=== PATIENT | female | born 1990 | race Caucasian/White ===

== ENCOUNTER 2018-08-04 17:34 | Inpatient (IN) | payer OTHER ==
[~2018-08-04] VITALS: Ht 160 cm; Wt 70.3 kg
[2018-08-04] MEDS: NS 1,000 ML IV SCH (01:00)
[2018-08-04] MEDS ORDERED: ZYRTTAB8 PO (17:45)
[2018-08-04] MEDS ORDERED: FLON1SPR NARES (17:45)
[2018-08-04] MEDS ORDERED: ROBA500T PO (17:45)
[2018-08-04] MEDS ORDERED: OXYC15TA76 PO (17:45)
[2018-08-04] MEDS ORDERED: CYCL5TAB PO (17:45)
[2018-08-04] MEDS ORDERED: CLEO150C PO (17:45)
[2018-08-04] MEDS ORDERED: CYMB1CAP5 PO (17:45)
[2018-08-04] MEDS ORDERED: ACET160S3 PO (17:45)
[2018-08-04 19:33] LABS: BASO % 0.3 % (0.0-1.0); EOS % 1.4 % (0.0-3.0); HEMATOCRIT 36.2 % (36.0-47.0); LYMPH # 3.1 10^3/uL (1.5-6.5); MEAN CORPUSCULAR HEMOGLOBIN 31.3 pg (27.0-33.0); MEAN CORPUSCULAR HGB CONC 33.1 g/dl (32.0-36.5); MEAN CORPUSCULAR VOLUME 94.5 fl (80.0-96.0); MONO # 0.7 10^3/uL (0.0-0.8); MONO % 4.7 % (0.0-5.0); NEUTROPHILS # 11.2 10^3/uL (1.8-7.7); PLATELET COUNT, AUTOMATED 524 10^3/uL (150-450); RED BLOOD COUNT 3.83 10^6/uL (4.00-5.40); WHITE BLOOD COUNT 15.4 10^3/uL (4.0-10.0)
[2018-08-04 19:34] LABS: BASO # 0.1 10^3/uL (0.0-0.2); EOS # 0.2 10^3/uL (0.0-0.50)
[2018-08-04 19:55] LABS: INR 0.87; PROTHROMBIN TIME 11.9 SECONDS (12.1-14.4)
[2018-08-04] MEDS ORDERED: PROPOFOL 200 MG/20 ML VIAL As Ordered ONE (19:55)
[2018-08-04] MEDS ORDERED: LIDOCAINE 2% INJ 100 MG/5 ML SDV (FOR ANES.) As Ordered ONE (19:55)
[2018-08-04 19:56] LABS: PARTIAL THROMBOPLASTIN TIME 28.5 SECONDS (25.4-37.6)
[2018-08-04] MEDS ORDERED: fentaNYL 100 MCG/2 ML INJECTION (J3010) As Ordered ONE (19:56)
[2018-08-04] MEDS ORDERED: MIDAZOLAM INJ 2 MG/2 ML VIAL (J2250) As Ordered ONE ×2 (19:56→22:17)
[2018-08-04 20:00] LABS: HCG, SERUM QUALITATIVE NEGATIVE (NEGATIVE)
[2018-08-04 20:05] LABS: BLOOD UREA NITROGEN 12 MG/DL (7-18); CALCIUM LEVEL 8.7 MG/DL (8.5-10.1); CARBON DIOXIDE LEVEL 28 MEQ/L (21-32); CHLORIDE LEVEL 103 MEQ/L (98-107); CREATININE FOR GFR 0.66 MG/DL (0.55-1.30); GLOMERULAR FILTRATION RATE > 60.0 (>60); GLUCOSE, FASTING 94 MG/DL (70-100); POTASSIUM SERUM 3.9 MEQ/L (3.5-5.1); SODIUM LEVEL 138 MEQ/L (136-145)
[2018-08-04] MEDS ORDERED: OXYC-517 PO (20:08)
[2018-08-04] MEDS ORDERED: DULO-34 PO (20:08)
[2018-08-04] MEDS ORDERED: ACET-683 PO (20:08)
[2018-08-04] MEDS ORDERED: ROCURONIUM BROMIDE 50 MG/5 ML VIAL As Ordered ONE (20:14)
[2018-08-04] MEDS ORDERED: SUCCINYLCHOLINE 100 MG/5 ML SYRINGE (J0330) As Ordered ONE (20:14)
[2018-08-04] MEDS ORDERED: dexameTHASONE 4 MG/ML 1ML VIAL (J1100) As Ordered ONE (20:15)
[2018-08-04] MEDS ORDERED: ONDANSETRON 4MG/2ML VIAL (J2405) As Ordered ONE ×3 (20:15→21:12)
[2018-08-04] MEDS ORDERED: MORPHINE 4 MG/ML 1ML VIAL/SYRINGE (J2270) IV ONE (20:15)
[2018-08-04] MEDS ORDERED: ONDANSETRON 4MG/2ML VIAL (J2405) IV ONE (20:30)
[2018-08-04] MEDS ORDERED: SCOPOLAMINE 1MG TRANSDERMAL PATCH As Ordered ONE (20:30)
--- NOTE | 2018-08-04 20:35 | CR.PDOC ---
Plastic Surgery Consultation Date of Consultation 08/04/18 History and Physical CONSULT REPORT FOR: ER REASON FOR CONSULTATION: Right breast hematoma HISTORY OF PRESENT ILLNESS: 28 y/o female s/p bilateral mastectomy with immediate pre pectoral reconstruction with tissue expanders 250cc. Expanded to about 180cc, done on 07/25/18. Patient was operated in [facility]. She flew over to see her son. She has [address]. Started to experience increasing pain in the right breast today at 4 pm, with increased drainage from TU, bright red and breast expanded twice the size of the other breast. No dizziness, SOB, CP. PAST MEDICAL HISTORY: 1. Right breast CA. PAST SURGICAL HISTORY: INCLUDES: 1. appendectomy, bilateral mastectomy with reconstruction, tonsillectomy, C secion. . PREVIOUS ANESTHESIA REACTIONS: allergy to Lidocaine?, nausea. ALLERGIES: Please see below. FAMILY HISTORY: non contributory. HOME MEDICATIONS: Please see below. REVIEW OF SYSTEMS: GENERAL: Denies chills, reports weight gain, reports feeling febrile yesterday. HEENT: Denies blurred vision and double vision. Denies ear symptoms. Denies hoarseness. NECK: Denies any neck pain]. CARDIOVASCULAR: Denies chest pain and palpitations. MUSCULOSKELETAL: Denies arthralgias, back pain and thrombophlebitis. SKIN: Denies rash. Hematoma right breast. NEUROLOGIC: Denies headache, stroke and transient ischemic attack. PSYCHIATRIC: Denies anxiety and depression. ENDOCRINE: Denies thyroid disease. HEMATOLOGY/ONCOLOGY: Denies bleeding or clotting disorder. HEART: Denies any chest pains, palpitations, paroxysmal dyspnea, orthopnea. PULMONARY: Denies chronic cough, dyspnea and wheezing. GASTROINTESTINAL: Denies rectal bleeding, family history of colon cancer, constipation, diarrhea, dysphagia, heartburn and jaundice. GENITOURINARY: Denies dysuria, frequency, hematuria and nocturia. ENDOCRINE: Denies polydipsia, polyphagia, polyuria, heat or cold intolerance. INFECTIOUS: Denies any recent upper respiratory tract infection, UTI, need for use of antibiotics. NUTRITION: Reports good appetite. PHYSICAL EXAMINATION: VITALS SIGNS: Please see below. GENERAL APPEARANCE:Patient seen, laying in bed, awake, alert, and oriented. Comfortable, in no acute distress. SKIN: Warm and moist. Right breast twice the size of the Left. Superior pole ecchymosis. Flaps viable, NAC viable. Inflammatory incisions. TU bilateral in place. HEENT: Normocephalic, atraumatic. [place] palpebral conjunctiva, anicteric sclerae. Lips and mucosa appear moist. NECK: Supple, no thyromegaly. No obvious jugular venous distention. LUNGS: Clear to auscultation bilaterally. No wheezing appreciated. HEART: No chest wall abnormalities. Regular rate and rhythm with no murmurs appr eciated. ABDOMEN: Abdomen is , soft, NT/ND. LABORATORY DATA: Please see below. IMAGING STUDIES: . IMPRESSION AND PLAN: Right breast hematoma. Plan for evacuation right breast hematoma today. Risks, benefits and alternatives discussed with patient at length. Continue with Clndamycin Primary surgeon contacted, surgical approach and original procedure verified. Admit to the hospital. Hospitalist service contacted. Vital Signs Vital Signs Date Time Temp Pulse Resp B/P (MAP) Pulse Ox O2 Delivery O2 Flow Rate FiO2 08/04/18 19:20 08/04/18 17:35 97.3 126 24 98 Room Air Laboratory Data Labs 24H Laboratory Tests 2 08/04/18 19:08: Immature Granulocyte % (Auto) 0.6, White Blood Count 15.4H, Red Blood Count 3.83L, Hemoglobin 12.0, Hematocrit 36.2, Mean Corpuscular Volume 94.5, Mean Corpuscular Hemoglobin 31.3, Mean Corpuscular Hemoglobin Concent 33.1, Red Cell Distribution Width 13.3, Platelet Count 524H, Neutrophils (%) (Auto) 73.0H, Lymphocytes (%) (Auto) 20.0L, Monocytes (%) (Auto) 4.7, Eosinophils (%) (Auto) 1.4, Basophils (%) (Auto) 0.3, Neutrophils # (Auto) 11.2H, Lymphocytes # (Auto) 3.1, Monocytes # (Auto) 0.7, Eosinophils # (Auto) 0.2, Basophils # (Auto) 0.1, Nucleated Red Blood Cells % (auto) 0.0, Prothrombin Time 11.9L, Prothromb Time International Ratio 0.87, Activated Partial Thromboplast Time 28.5, Anion Gap 7L, Glomerular Filtration Rate > 60.0, Blood Urea Nitrogen 12, Creatinine 0.66, Sodium Level 138, Potassium Level 3.9, Chloride Level 103, Carbon Dioxide Level 28, Calcium Level 8.7, Human Chorionic Gonadotropin, Qual NEGATIVE CBC/BMP Laboratory Tests 08/04/18 19:08 Red Blood Count 3.83 L, Mean Corpuscular Volume 94.5, Mean Corpuscular Hemoglobin 31.3, Mean Corpuscular Hemoglobin Concent 33.1, Red Cell Distribution Width 13.3, Neutrophils (%) (Auto) 73.0 H, Lymphocytes (%) (Auto) 20.0 L, Monocytes (%) (Auto) 4.7, Eosinophils (%) (Auto) 1.4, Basophils (%) (Auto) 0.3, Neutrophils # (Auto) 11.2 H, Lymphocytes # (Auto) 3.1, Monocytes # (Auto) 0.7, Eosinophils # (Auto) 0.2, Basophils # (Auto) 0.1, Calcium Level 8.7 Home Medications Scheduled Clindamycin Hcl (Cleocin HCl) 150 Mg Capsule, 150 MG PO BID, (Reported) Duloxetine HCl (Duloxetine HCl) 40 Mg Capsule.dr, 40 MG PO QHS, (Reported) Fluticasone Propionate (Flonase Allergy Relief) 9.9 Ml [place].susp, 2 SPRAY NARES DAILY, (Reported) Methocarbamol (Robaxin) 500 Mg Tablet, 1,000 MG PO BID, (Reported) Scheduled PRN Acetaminophen (Acetaminophen) 500 Mg Tablet, 1,000 MG PO Q6H PRN for PAIN, (Reported) Cyclobenzaprine HCl (Cyclobenzaprine HCl) 5 Mg Tablet, 5 MG PO TID PRN for BACK PAIN, (Reported) Oxycodone HCl (Oxycodone HCl) 5 Mg Tablet, 5 MG PO QID PRN for PAIN, (Reported) Miscellaneous Medications Cetirizine HCl/Pseudoephedrine (Zyrtec-D Tablet) 1 Each Tab.er.12h, 1 TAB PO, (Reported) Allergies Coded Allergies: Sulfa (Sulfonamide Antibiotics) (Verified Allergy, Severe, anaphylactic, 08/04/18) amoxicillin (Verified Allergy, Intermediate, rash, 08/04/18) clavulanic acid (Verified Allergy, Intermediate, rash, 08/04/18) LESLIE PENA DO Aug 04, 2018 20:35
[2018-08-04] MEDS ORDERED: CLINDAMYCIN 600 MG/50 ML PREMIX BAG As Ordered ONE (20:49)
[2018-08-04] MEDS ORDERED: BACITRACIN PWD 50,000 UNITS VIAL As Ordered ONE (20:49)
--- NOTE | 2018-08-04 20:49 | HPEPDOC ---
[facility] Medical History & Physical Date of Admission Aug 05, 2018 Date of Service: Aug 05, 2018 History and Physical CHIEF COMPLAINT: R. breast pain HISTORY OF PRESENT ILLNESS: Patient is a 28-year-old female with past medical history of breast cancer status post bilateral mastectomy and reconstruction surgery on 07/25/18 in [facility]. presented to [facility] with complaints of acute R. breast swelling and pain. She reportedly has been doing well post op since returning from [facility] until about 4PM today when her R. became acutely swollen with significant pain. Also noted to have bloody drainage from her surgical drain from the procedure which is new for her. She underwent hematoma evacuation with plastic surgery in the evening and reports feeling better post op. Currently still reports pain, better controlled now. Otherwise has no other complaints. PAST MEDICAL HISTORY: Refer to [facility] PAST SURGICAL HISTORY: Bilateral mastectomy and reconstruction Appendectomy Tonsillectomy SOCIAL HISTORY: Denies tobacco, alcohol or illicit drug use. FAMILY HISTORY: Mom had ovarian cancer ALLERGIES: Please see below. REVIEW OF SYSTEMS: 10 point review of system negative except as stated in [facility] HOME MEDICATIONS: Please see below. PHYSICAL EXAMINATION: General: weak. mild to moderate distress from pain. Eyes: Normal sclera, EOMI, PIN[place] HENT: Atraumatic, neck supple, moist mucous membranes MSK: Tenderness over R. breast on palpation. No erythema. No significant swelling noted, drain in place with serosanguineous drainage. Cardiovascular: Normal rate, normal rhythm. No murmurs appreciated. Pulmonary: Clear to auscultation b/l, no wheezing GI: Soft, nontender, nondistended Skin: Warm and dry Neuro: CN grossly intact. No focal deficits. Strengths equal b/l. Psych: oriented x 3 LABORATORY DATA: See below. IMAGING: Chest CT- IMPRESSION: Status post bilateral breast expanders mastectomies. Soft tissue density demonstrated anterior to the soft tissue in home sales consultant on the right measures 2.1 x 7.8 x 3.2 cm may represent hematoma. MICROBIOLOGY: Please see below. ASSESSMENT AND PLAN: 1. R. breast hematoma - s/p hematoma evacuation 08/04/18 by plastic surgery. - Doing well post op with pain improving. - PCU pump in place with Percocet. - Pain control. - Monitor overnight. f/u with plastic surgery in AM. - Drain in place. - c/w Clindamycin 2. Breast ca s/p b/l mastectomy - f/u as outpatient post discharge. DVT ppx: SCD Code status: Full code Vital Signs Vital Signs Date Time Temp Pulse Resp B/P (MAP) Pulse Ox O2 Delivery O2 Flow Rate FiO2 08/04/18 20:25 18 08/04/18 19:20 08/04/18 17:35 97.3 126 98 Room Air Laboratory Data Labs 24H Laboratory Tests 2 08/04/18 19:08: Immature Granulocyte % (Auto) 0.6, White Blood Count 15.4H, Red Blood Count 3.83L, Hemoglobin 12.0, Hematocrit 36.2, Mean Corpuscular Volume 94.5, Mean Corpuscular Hemoglobin 31.3, Mean Corpuscular Hemoglobin Concent 33.1, Red Cell Distribution Width 13.3, Platelet Count 524H, Neutrophils (%) (Auto) 73.0H, Lymphocytes (%) (Auto) 20.0L, Monocytes (%) (Auto) 4.7, Eosinophils (%) (Auto) 1.4, Basophils (%) (Auto) 0.3, Neutrophils # (Auto) 11.2H, Lymphocytes # (Auto) 3.1, Monocytes # (Auto) 0.7, Eosinophils # (Auto) 0.2, Basophils # (Auto) 0.1, Nucleated Red Blood Cells % (auto) 0.0, Prothrombin Time 11.9L, Prothromb Time International Ratio 0.87, Activated Partial Thromboplast Time 28.5, Anion Gap 7L, Glomerular Filtration Rate > 60.0, Blood Urea Nitrogen 12, Creatinine 0.66, Sodium Level 138, Potassium Level 3.9, Chloride Level 103, Carbon Dioxide Level 28, Calcium Level 8.7, Human Chorionic Gonadotropin, Qual NEGATIVE 08/04/18 20:28: CBC/BMP Laboratory Tests 08/04/18 19:08 Red Blood Count 3.83 L, Mean Corpuscular Volume 94.5, Mean Corpuscular Hemoglobin 31.3, Mean Corpuscular Hemoglobin Concent 33.1, Red Cell Distribution Width 13.3, Neutrophils (%) (Auto) 73.0 H, Lymphocytes (%) (Auto) 20.0 L, Monocytes (%) (Auto) 4.7, Eosinophils (%) (Auto) 1.4, Basophils (%) (Auto) 0.3, Neutrophils # (Auto) 11.2 H, Lymphocytes # (Auto) 3.1, Monocytes # (Auto) 0.7, Eosinophils # (Auto) 0.2, Basophils # (Auto) 0.1, Calcium Level 8.7 Home Medications Scheduled Clindamycin Hcl (Cleocin HCl) 150 Mg Capsule, 150 MG PO BID Duloxetine HCl (Duloxetine HCl) 40 Mg Capsule.dr, 40 MG PO QHS Fluticasone Propionate (Flonase Allergy Relief) 9.9 Ml [place].susp, 2 SPRAY NARES DAILY Methocarbamol (Robaxin) 500 Mg Tablet, 1,000 MG PO BID Scheduled PRN Acetaminophen (Acetaminophen) 500 Mg Tablet, 1,000 MG PO Q6H PRN for PAIN Cyclobenzaprine HCl (Cyclobenzaprine HCl) 5 Mg Tablet, 5 MG PO TID PRN for BACK PAIN Oxycodone HCl (Oxycodone HCl) 5 Mg Tablet, 5 MG PO QID PRN for PAIN Miscellaneous Medications Cetirizine HCl/Pseudoephedrine (Zyrtec-D Tablet) 1 Each Tab.er.12h, 1 TAB PO Allergies Coded Allergies: Sulfa (Sulfonamide Antibiotics) (Verified Allergy, Severe, anaphylactic, 08/04/18) amoxicillin (Verified Allergy, Intermediate, rash, 08/04/18) clavulanic acid (Verified Allergy, Intermediate, rash, 08/04/18) A-FIB/CHADSVASC A-FIB History Current/History of A-Fib/PAF?: No DUKE LIRA MD Aug 04, 2018 20:49
--- NOTE | 2018-08-04 20:52 | REPVR ---
EXAM: CT Chest Without Contrast EXAM DATE/TIME: 08/04/2018 7:44 PM CLINICAL HISTORY: 28 years old, female; Signs and symptoms; Other: R/O chest hematoma; Prior surgery; Surgery date: <1 month TECHNIQUE: Imaging protocol: Axial computed tomography images of the chest without intravenous contrast. Coronal and sagittal reformatted images were created and reviewed. 3D rendering: MIP reconstructed images were created and reviewed. Radiation optimization: All CT scans at this facility use at least one of these dose optimization techniques: automated exposure control; mA and/or kV adjustment per patient size (includes targeted exams where dose is matched to clinical indication); or iterative reconstruction. COMPARISON: No relevant prior studies available. FINDINGS: Lungs: Unremarkable. No consolidation. No masses. Pleural space: Unremarkable. No pneumothorax. No pleural effusion. Heart: Unremarkable. No cardiomegaly. No pericardial effusion. Aorta: Unremarkable. No aortic aneurysm. Lymph nodes: Unremarkable. No enlarged lymph nodes. Bones/joints: Unremarkable. No acute fracture. Soft tissues: Status post bilateral mastectomies with soft tissue expanders in place. Soft tissue density demonstrated anterior to the soft tissue casting finisher on the right measures 2.1 x 7.8 x 3.2 cm may represent hematoma. Bilateral soft tissue drains demonstrated in the postoperative bed in the anterior chest wall. IMPRESSION: Status post bilateral breast expanders mastectomies. Soft tissue density demonstrated anterior to the soft tissue casting finisher on the right measures 2.1 x 7.8 x 3.2 cm may represent hematoma. Electronically signed by: [place] On 08/04/2018 20:52:14 PM
[2018-08-04] MEDS ORDERED: PERCOCET 5MG/325MG TAB PO PRN ×3 (21:00→23:00)
[2018-08-04] MEDS ORDERED: NS 1,000 ML IV SCH (21:00)
[2018-08-04] MEDS ORDERED: MORPHINE 4 MG/ML 1ML VIAL/SYRINGE (J2270) IV PRN (21:00)
[2018-08-04] MEDS ORDERED: KETAMINE HCL 200 MG/20 ML VIAL As Ordered ONE (21:08)
[2018-08-04] MEDS ORDERED: ACETAMINOPHEN 1000MG 100ML IV BTL (OFIRMEV) (J0131 PER 10MG) As Ordered ONE (21:11)
[2018-08-04] MEDS ORDERED: SUGAMMADEX SODIUM 500 MG/5 ML VIAL (BRIDION) As Ordered ONE (21:11)
[2018-08-04] MEDS ORDERED: PHENYLephrine HCL 500 MCG/5 ML (100MCG/ML) SYRINGE (J2370) As Ordered ONE (21:41)
[2018-08-04] MEDS ORDERED: ePHEDrine SULFATE 25 MG/5 ML(5MG/ML) SYRINGE As Ordered ONE (21:47)
[2018-08-04] MEDS ORDERED: HYDROmorphone HCL 2 MG/ML 1ML VIAL (J1170) As Ordered ONE (22:01)
[2018-08-04] MEDS ORDERED: MORPHINE 1MG/ML IN 0.9% NACL 100ML IV BAG As Ordered ONE (22:27)
[2018-08-04] MEDS ORDERED: LR 1,000 ML IV SCH (22:30)
[2018-08-04] MEDS ORDERED: fentaNYL 100 MCG/2 ML INJECTION (J3010) IV PRN (22:30)
[2018-08-04] MEDS ORDERED: ONDANSETRON 4MG/2ML VIAL (J2405) IV PRN ×3 (22:30→22:45)
[2018-08-04] MEDS ORDERED: MORPHINE 1MG/ML IN 0.9% NACL 100ML IV BAG IV PRN (22:30)
[2018-08-04] MEDS ORDERED: diphenhydrAMINE INJ 50MG/ML VIAL (J1200) IV PRN (22:30)
[2018-08-04] MEDS ORDERED: NALBUPHINE HCL 10 MG/ML AMP (J2300) IV PRN (22:30)
[2018-08-04] MEDS ORDERED: EPIDURAL/PCA KEYS XX PRN (22:30)
[2018-08-04] MEDS ORDERED: NALOXONE INJ 0.4 MG/1 ML VIAL (J2310) IV PRN (22:30)
--- NOTE | 2018-08-04 22:33 | POST-OPPD ---
Postoperative Procedure Note Date Of Procedure: Aug 04, 2018 PREOPERATIVE DIAGNOSIS: Right breast hematoma POSTOPERATIVE DIAGNOSIS: same FINDINGS: Right breast hematoma PROCEDURE: Evacuation of Right breast hematoma SURGEON: Dr Pena FINGERPRINT CLASSIFIER: Dr Medrano ANESTHESIA: General SPECIMENS: Right breast hematoma. Culture Right breast ESTIMATED BLOOD LOSS: 150cc REPLACED: none DRAINS: TU 10 mm right breast COMPLICATIONS: none POSTOPERATIVE CONDITION: stable Dict: [id number] LESLIE PENA DO Aug 04, 2018 22:33
[2018-08-04] MEDS ORDERED: oxyCODONE 5MG TAB PO ONE (23:03)
[2018-08-04] MEDS ORDERED: oxyCODONE 5MG TAB As Ordered ONE (23:03)
--- NOTE | 2018-08-04 23:13 | RO ---
DATE OF PROCEDURE: 08/04/2018 PREPROCEDURE DIAGNOSIS: Right breast hematoma. POSTPROCEDURE DIAGNOSIS: Right breast hematoma. PROCEDURE: Evacuation of right breast hematoma. SURGEON: Dr. Sujata Barreto CARPET TILE LAYER: Dr. Jomar Bonner ANESTHESIA: General. SPECIMEN SENT: Right breast hematoma and culture right breast. BLOOD LOSS: 150 mL. No replacement needed. One drain was placed, postoperative, 10 mm Jose-Haney drain. No complications. This is a 28-year-old female who is status post bilateral subcuticular mastectomies with immediate prepectoral reconstruction, which was done in [place], [place] on 07/25/2018. The patient developed sharp pain today at 4 o'clock on the right side, which was followed by expansion of the right breast twice the size of the left and increased output from the UT drain, which was bright red. The patient went to the emergency room where I saw her in consultation. She developed an acute hematoma on the right side. She emergently was scheduled to go to the operating room for evacuation of hematoma. All the risks and benefits and alternatives were discussed with the patient preoperatively. Also, the primary surgeon was contacted and details of procedure were discussed with him as well. DESCRIPTION OF PROCEDURE: After informed consent was confirmed, the patient was brought into the operating room, placed in supine position, preoperative antibiotics given, Clindamycin, and sequential stockings placed on the lower calves. She was prepped and draped in the usual sterile fashion. Her mastectomy approach was inframammary, so we used the same incision. Preoperatively, the TU drain that was present was removed, and then we made an incision through the old incision which was reopened. We identified the implant, it was wrapped in AlloDerm, completely intact with a hematoma and the liquid portion of the hematoma which was evacuated from surrounding the transportation program director and also in the area in between the AlloDerm and the transportation program director itself. The wound was irrigated with copious amount of normal saline irrigation. The direct vision inspection was done with the lighted retractor. No active bleeding was identified. We found on the medial side the suture tab from the transportation program director was in the upright position, which was touching the muscle in the side view, so it was trimmed, so now it is flat along the muscle. And the wound was irrigated again and reexamined. There was no active bleeding. Then, a new 10 mm Jose-Haney drain was introduced through the same opening, and then the wound was closed in layers with interrupted #3-0 Monocryl and #4-0 Monocryl sutures. Steri-Strips were applied and a clear occlusive dressing. The patient was extubated in the operating room without any difficulty. She was transferred to the recovery room in stable condition. NIKKI
[2018-08-04] MEDS ORDERED: LORazepam 2 MG/ML VIAL (J2060) IV PRN (23:33)
[2018-08-04] MEDS ORDERED: LORazepam 2 MG/ML VIAL (J2060) As Ordered ONE (23:37)
[2018-08-04] MEDS ORDERED: GABAPENTIN 300 MG CAP PO ONE (23:45)
[2018-08-04] MEDS ORDERED: CYCLOBENZAPRINE 5MG TABLET PO ONE (23:45)
[2018-08-04] MEDS ORDERED: METHOCARBAMOL 1,000 MG/10 ML VIAL (J2800) IV ONE (23:45)
[2018-08-05] VITALS (8 sets, daily range): BP systolic 101–108; BP diastolic 56–64
[2018-08-05] MEDS ORDERED: UNRESOLVED CLARIFICATION ENTRY XX SCH (00:01)
[2018-08-05] MEDS: CLINDAMYCIN 600 MG in APPROPRIATE DILUENT 1 EA IV SCH ×2 (05:16→13:37)
[2018-08-05 07:05] LABS: HEMATOCRIT 26.8 % (36.0-47.0); MEAN CORPUSCULAR HEMOGLOBIN 31.3 pg (27.0-33.0); MEAN CORPUSCULAR HGB CONC 32.8 g/dl (32.0-36.5); MEAN CORPUSCULAR VOLUME 95.4 fl (80.0-96.0); RED BLOOD COUNT 2.81 10^6/uL (4.00-5.40); WHITE BLOOD COUNT 14.1 10^3/uL (4.0-10.0)
[2018-08-05 07:23] LABS: BLOOD UREA NITROGEN 11 MG/DL (7-18); CALCIUM LEVEL 8.1 MG/DL (8.5-10.1); CARBON DIOXIDE LEVEL 22 MEQ/L (21-32); CHLORIDE LEVEL 103 MEQ/L (98-107); GLOMERULAR FILTRATION RATE > 60.0 (>60); GLUCOSE, FASTING 168 MG/DL (70-100); HEMOGLOBIN 8.8 g/dl (12.0-15.5); PLATELET COUNT, AUTOMATED 353 10^3/uL (150-450); POTASSIUM SERUM 3.9 MEQ/L (3.5-5.1); SODIUM LEVEL 135 MEQ/L (136-145)
--- NOTE | 2018-08-05 11:31 | IPNPDOC ---
Subjective General Date/Time Seen The patient was seen on 08/05/18 at 11:23. Subject Chief Complaint/History The patient is a 28-year-old female admitted with a reason for visit of Evacuation R Breast Hematoma. Patient states her pain is much improved and now about a 3. Comfortable in bed. Tolerated diet, fluids. Ambulating. Current Medications Current Medications Current Medications Clindamycin Phosphate 600 mg/ IV Miscellaneous Supplies 50 ml @ 100 mls/hr Q8H IV Last administered on 08/05/18at 05:16; Start 08/05/18 at 05:00 Diphenhydramine HCl (Benadryl) 12.5 mg Q4HP PRN IV ITCHING; Start 08/04/18 at 22:30; Stop 08/05/18 at 10:43; Status DC Fentanyl Citrate (Sublimaze) 25 mcg Q5MP PRN IV MODERATE PAIN (PS 4-7); Start 08/04/18 at 22:30; Stop 08/04/18 at 23:59; Status DC Home Med (Med Rec Complete!) ASDIRECTED XX ; Start 08/04/18 at 20:15; Stop at 20:15; Status DC Lactated Ringer's 1,000 ml @ 100 mls/hr Q10H IV Last administered on 08/05/18at 01:49; Start 08/04/18 at 22:30; Stop 08/04/18 at 23:59; Status DC Lorazepam (Ativan) 1 mg Q15MP PRN IV PRN ANXIETY MAX OF 2 DOSES Last administered on 08/04/18at 23:38; Start 08/04/18 at 23:33; Stop 08/05/18 at 00:33; Status DC Miscellaneous (Unresolved Clarification Entry) SEE LABEL COMMENTS UNRESOLVED XX ; Start 08/05/18 at 00:01; Stop 08/05/18 at 06:12; Status DC Morphine Sulfate (Morphine Sulfate In 0.9%Nacl Iv Bag) ASDIRECTED PRN IV SEE LABEL COMMENTS Last administered on 08/04/18at 22:33; Start 08/04/18 at 22:30; Stop 08/05/18 at 10:43; Status DC Morphine Sulfate (Morphine Sulfate Inj) 2 mg Q3HP PRN IV PAIN; Start 08/04/18 at 21:00; Stop 08/04/18 at 22:30; Status DC Nalbuphine HCl (Nubain) 2.5 mg Q6HP PRN IV PRURITIS; Start 08/04/18 at 22:30; Stop 08/05/18 at 10:43; Status DC Naloxone HCl (Narcan) 0.1 mg Q5MP PRN IV SEE LABEL COMMENTS; Start 08/04/18 at 22:30; Stop 08/05/18 at 10:43; Status DC Non-Formulary Medication (Epidural/TIMBER MANAGEMENT TECHNICIAN [place]) USE THIS ENTRY TO VEND ... ASDIRECTED PRN XX SEE LABEL COMMENTS; Start 08/04/18 at 22:30; Stop 08/05/18 at 10:43; Status DC Ondansetron HCl (ZOFRAN INJection) 4 mg Q4HP PRN IV NAUSEA OR VOMITING Last administered on 08/04/18at 22:59; Start 08/04/18 at 22:30; Stop 08/04/18 at 23:59; Status DC Ondansetron HCl (ZOFRAN INJection) 4 mg Q4HP PRN IV NAUSEA; Start 08/04/18 at 22:45; Status Future Hold Ondansetron HCl (ZOFRAN INJection) 4 mg Q6HP PRN IV NAUSEA Last administered on 08/05/18at 04:26; Start 08/04/18 at 22:30; Stop 08/05/18 at 10:43; Status DC Oxycodone/ Acetaminophen (Percocet 5mg/ 325mg Tablet) 1 tab Q6HP PRN PO SEVERE PAIN (PS 8-10); Start 08/04/18 at 21:00; Stop 08/04/18 at 22:31; Status DC Oxycodone/ Acetaminophen (Percocet 5mg/ 325mg Tablet) 1 tab Q6HP PRN PO MILD/MODERATE PAIN (PS 1-7); Start 08/04/18 at 23:00 Oxycodone/ Acetaminophen (Percocet 5mg/ 325mg Tablet) 2 tab Q6HP PRN PO SEVERE PAIN (PS 8-10) Last administered on 08/05/18at 10:45; Start 08/04/18 at 23:00 Sodium Chloride 1,000 ml @ 75 mls/hr [id number] IV ; Start 08/04/18 at 21:00; Stop 08/04/18 at 22:35; Status DC Sodium Chloride 1,000 ml @ 75 mls/hr [id number] IV Last administered on 08/04/18at 01:00; Start 08/04/18 at 22:45 Allergies Coded Allergies: Sulfa (Sulfonamide Antibiotics) (Verified Allergy, Severe, anaphylactic, 08/04/18) amoxicillin (Verified Allergy, Intermediate, rash, 08/04/18) clavulanic acid (Verified Allergy, Intermediate, rash, 08/04/18) Objective Physical Examination Examination GENERAL APPEARANCE:Patient seen, laying in bed, awake, alert, and oriented. Comfortable, in no acute distress. SKIN: Warm and moist. Breast soft, non tender. TU drain with serosanguinous fluid. HEENT: Normocephalic, atraumatic. [place] palpebral conjunctiva, anicteric sclerae. Lips and mucosa appear moist. NECK: Supple, no thyromegaly. No obvious jugular venous distention. LUNGS: Clear to auscultation bilaterally. No wheezing appreciated. HEART: No chest wall abnormalities. Regular rate and rhythm with no murmurs appreciated. Vital Signs Vital Signs Date Time Temp Pulse Resp B/P (MAP) Pulse Ox O2 Delivery O2 Flow Rate FiO2 08/05/18 10:45 18 08/05/18 10:00 97.8 110 101/56 (71) 98 08/05/18 00:35 2 08/04/18 17:35 Room Air I&Os I&O- Last 24 Hours up to 6 AM 08/05/18 06:00 Intake Total 2215 ml Output Total 185 ml Balance 2030 ml Laboratory Data Labs 24H Laboratory Tests 2 08/04/18 19:08: Immature Granulocyte % (Auto) 0.6, White Blood Count 15.4H, Red Blood Count 3.83L, Hemoglobin 12.0, Hematocrit 36.2, Mean Corpuscular Volume 94.5, Mean Corpuscular Hemoglobin 31.3, Mean Corpuscular Hemoglobin Concent 33.1, Red Cell Distribution Width 13.3, Platelet Count 524H, Neutrophils (%) (Auto) 73.0H, Lymphocytes (%) (Auto) 20.0L, Monocytes (%) (Auto) 4.7, Eosinophils (%) (Auto) 1.4, Basophils (%) (Auto) 0.3, Neutrophils # (Auto) 11.2H, Lymphocytes # (Auto) 3.1, Monocytes # (Auto) 0.7, Eosinophils # (Auto) 0.2, Basophils # (Auto) 0.1, Nucleated Red Blood Cells % (auto) 0.0, Prothrombin Time 11.9L, Prothromb Time International Ratio 0.87, Activated Partial Thromboplast Time 28.5, Anion Gap 7L, Glomerular Filtration Rate > 60.0, Blood Urea Nitrogen 12, Creatinine 0.66, Sodium Level 138, Potassium Level 3.9, Chloride Level 103, Carbon Dioxide Level 28, Calcium Level 8.7, Human Chorionic Gonadotropin, Qual NEGATIVE 08/04/18 20:28: Urine Color STRAW, Urine Appearance CLEAR, Urine pH 6.0, Urine Specific [place] 1.005, Urine Protein NEGATIVE, Urine Glucose (UA) NEGATIVE, Urine Ketones NEGATIVE, Urine Blood NEGATIVE, Urine Nitrite NEGATIVE, Urine Bilirubin NEGATIVE, Urine Urobilinogen 0.2, Urine Leukocyte Esterase TRACEH, Urine WBC (Auto) 3, Urine RBC (Auto) 3, Urine Hyaline Casts (Auto) 0, Urine Bacteria (Auto) NEGATIVE, Urine Squamous Epithelial Cells 2, Urine Sperm (Auto) 08/05/18 06:20: Nucleated Red Blood Cells % (auto) 0.0, Anion Gap 10, Glomerular Filtration Rate > 60.0, Blood Urea Nitrogen 11, Creatinine 0.80, Sodium Level 135L, Potassium Level 3.9, Chloride Level 103, Carbon Dioxide Level 22, Calcium Level 8.1L CBC/BMP Laboratory Tests 08/04/18 19:08 Red Blood Count 3.83 L, Mean Corpuscular Volume 94.5, Mean Corpuscular Hemoglobin 31.3, Mean Corpuscular Hemoglobin Concent 33.1, Red Cell Distribution Width 13.3, Neutrophils (%) (Auto) 73.0 H, Lymphocytes (%) (Auto) 20.0 L, Monocytes (%) (Auto) 4.7, Eosinophils (%) (Auto) 1.4, Basophils (%) (Auto) 0.3, Neutrophils # (Auto) 11.2 H, Lymphocytes # (Auto) 3.1, Monocytes # (Auto) 0.7, Eosinophils # (Auto) 0.2, Basophils # (Auto) 0.1, Calcium Level 8.7 08/05/18 06:20 Red Blood Count 2.81 L, Mean Corpuscular Volume 95.4, Mean Corpuscular Hemoglobin 31.3, Mean Corpuscular Hemoglobin Concent 32.8, Red Cell Distribution Width 13.2, Calcium Level 8.1 L Microbiology Microbiology 08/04/18 Urine Culture, Received Pending 08/05/18 Anaerobic Culture, Received Pending 08/04/18 Body Fluid Culture, Received Pending Impression S/p right breast hematoma evacuation. Pain control in progress, D/c TIMBER MANAGEMENT TECHNICIAN Morphine pump. D/c IVF Start with PO Percocet for pain. H/H repeat. Flaps viable Continue with TU monitoring D/c pending after pain controlled with PO meds. Patient to follow with Plastic surgery after discharge. Plan / VTE VTE Prophylaxis Ordered?: Yes LESLIE PENA DO Aug 05, 2018 11:31
[2018-08-05] MEDS: NS 1,000 ML IV SCH (12:05)
[2018-08-05 12:27] LABS: HEMATOCRIT 28.6 % (36.0-47.0); HEMOGLOBIN 9.6 g/dl (12.0-15.5)
[2018-08-05] MEDS ORDERED: PERCOCET PO (14:45)
--- NOTE | 2018-08-05 17:57 | DS.PDOC ---
Discharge Summary General Date of Admission Aug 04, 2018 at 23:06 Date of Discharge 08/05/2018 Discharge Summary DISCHARGE DIAGNOSIS: Right breast Hematoma SECONDARY DIAGNOSIS: 1. Breast cancer PROCEDURES PERFORMED DURING STAY: Right breast hematoma evacuation. CONSULTANTS: Plastic surgery HOSPITAL COURSE: Patient is a 28-year-old female with a history of known breast cancer for which she follows with through [facility]. She had recent bilateral mastectomy and reconstructive surgery 07/25/2018 in [facility]. She noticed increased swelling of the right breast over a period of short hours it increased in size by twofold. She presented to the emergency room was found to have significant hematoma. She was seen by plastic surgery who did evacuation in the operating room patient tolerated her procedure well required significant pain medication postoperatively at this time is medically stable for discharge home. DISCHARGE MEDICATIONS: Please see below. ALLERGIES: Please see below. SUBJECTIVE: Patient is tearful about her narcotics use being questioned otherwise patient denies chest pain, shortness, breath, nausea, vomiting, fevers, chills OBJECTIVE: PHYSICAL EXAMINATION: VITAL SIGNS: Please see below. GENERAL: Tearful young female sitting up in bed awake alert oriented speaking in complete sentences no acute distress HEENT: Moist mucous membranes no elevation and CVP CARDIOVASCULAR: S1 S2 regular no additional heart sounds appreciated. RESPIRATORY: Clear to auscultation bilaterally. Dressings are clean dry and intact ABDOMINAL: Bowel sounds present abdomen soft and nontender EXTREMITIES: No clubbing, cyanosis, edema NEUROLOGICAL: Spontaneously moves all 4 extremities cranial 2 through 12 grossly intact, no gross focal deficits appreciated PSYCHOLOGICAL: Appropriate LABORATORY DATA, MICROBIOLOGY: Please see below. IMAGING STUDIES: CT chest:Status post bilateral breast expanders mastectomies. Soft tissue density demonstrated anterior to the soft tissue practical nurse on the right measures 2.1 x 7.8 x 3.2 cm may represent hematoma. DVT prophylaxis ordered: None secondary to active bleeding ASSESSMENT AND PLAN: This is a 28-year-old female with breast cancer status post mastectomy, complicated by right breast hematoma. PROBLEMS: 1. Right breast hematoma: Postop day 1 status post evacuation plastic surgery help greatly appreciated. I did have a lengthy conversation bedside with the patient regarding her narcotics use as well as with plastic surgeon. Patient has significant narcotics tolerance. She demonstrates good knowledge of the medical healthcare system as well as medical jargon. She indicates her father is a physician. Surgery did have some concerns regarding potential drug seeking behavior. Patient initially stated she did not want to take any further narcotics after this conversation however at the time of discharge she did request some. At this time she is medically stable her blood pressure is normalized she is no longer tachycardic her hemoglobin. If stable. Extensive time spent bedside consoling the patient answering all of her questions to her satisfaction providing reassurance and coordinating his discharge. I did offer her meeting with the patient advocate which she declined. 2. Breast cancer: Continue follow-up with oncology at [facility]. DISPOSITION: Home to self-care. DISCHARGE CONDITION: Improved and Stable. FOLLOW UP: PCP within 7 days oncology as scheduled plastic surgery within 1 week ACTIVITY: As per surgery's recommendations. DIET: As tolerated TIME SPENT ON DISCHARGE: 35 minutes Vital Signs/I&Os Vital Signs Date Time Temp Pulse Resp B/P (MAP) Pulse Ox O2 Delivery O2 Flow Rate FiO2 08/05/18 13:40 99.1 100 18 102/56 (71) 97 08/05/18 00:35 2 08/04/18 17:35 Room Air I&O- Last 24 Hours up to 6 AM 08/05/18 06:00 Intake Total 2215 ml Output Total 185 ml Balance 2030 ml Laboratory Data Labs 24H Laboratory Tests 2 08/04/18 19:08: Immature Granulocyte % (Auto) 0.6, White Blood Count 15.4H, Red Blood Count 3.83L, Hemoglobin 12.0, Hematocrit 36.2, Mean Corpuscular Volume 94.5, Mean Corpuscular Hemoglobin 31.3, Mean Corpuscular Hemoglobin Concent 33.1, Red Cell Distribution Width 13.3, Platelet Count 524H, Neutrophils (%) (Auto) 73.0H, Lymphocytes (%) (Auto) 20.0L, Monocytes (%) (Auto) 4.7, Eosinophils (%) (Auto) 1.4, Basophils (%) (Auto) 0.3, Neutrophils # (Auto) 11.2H, Lymphocytes # (Auto) 3.1, Monocytes # (Auto) 0.7, Eosinophils # (Auto) 0.2, Basophils # (Auto) 0.1, Nucleated Red Blood Cells % (auto) 0.0, Prothrombin Time 11.9L, Prothromb Time International Ratio 0.87, Activated Partial Thromboplast Time 28.5, Anion Gap 7L, Glomerular Filtration Rate > 60.0, Blood Urea Nitrogen 12, Creatinine 0.66, Sodium Level 138, Potassium Level 3.9, Chloride Level 103, Carbon Dioxide Level 28, Calcium Level 8.7, Human Chorionic Gonadotropin, Qual NEGATIVE 08/04/18 20:28: Urine Color STRAW, Urine Appearance CLEAR, Urine pH 6.0, Urine Specific [place] 1.005, Urine Protein NEGATIVE, Urine Glucose (UA) NEGATIVE, Urine Ketones NEGATIVE, Urine Blood NEGATIVE, Urine Nitrite NEGATIVE, Urine Bilirubin NEGATIVE, Urine Urobilinogen 0.2, Urine Leukocyte Esterase TRACEH, Urine WBC (Auto) 3, Urine RBC (Auto) 3, Urine Hyaline Casts (Auto) 0, Urine Bacteria (Auto) NEGATIVE, Urine Squamous Epithelial Cells 2, Urine Sperm (Auto) 08/05/18 06:20: Nucleated Red Blood Cells % (auto) 0.0, Anion Gap 10, Glomerular Filtration Rate > 60.0, Blood Urea Nitrogen 11, Creatinine 0.80, Sodium Level 135L, Potassium Level 3.9, Chloride Level 103, Carbon Dioxide Level 22, Calcium Level 8.1L CBC/BMP Laboratory Tests 08/04/18 19:08 Red Blood Count 3.83 L, Mean Corpuscular Volume 94.5, Mean Corpuscular Hemoglobin 31.3, Mean Corpuscular Hemoglobin Concent 33.1, Red Cell Distribution Width 13.3, Neutrophils (%) (Auto) 73.0 H, Lymphocytes (%) (Auto) 20.0 L, Monocytes (%) (Auto) 4.7, Eosinophils (%) (Auto) 1.4, Basophils (%) (Auto) 0.3, Neutrophils # (Auto) 11.2 H, Lymphocytes # (Auto) 3.1, Monocytes # (Auto) 0.7, Eosinophils # (Auto) 0.2, Basophils # (Auto) 0.1, Calcium Level 8.7 08/05/18 06:20 Red Blood Count 2.81 L, Mean Corpuscular Volume 95.4, Mean Corpuscular Hemoglobin 31.3, Mean Corpuscular Hemoglobin Concent 32.8, Red Cell Distribution Width 13.2, Calcium Level 8.1 L 08/05/18 12:13 Microbiology Microbiology 08/04/18 Urine Culture - Final, Complete 08/05/18 Anaerobic Culture, Received Pending 6/10/19 Body Fluid Culture, Received Pending Discharge Medications Scheduled Clindamycin Hcl (Cleocin HCl) 150 Mg Capsule, 150 MG PO BID, (Reported) Duloxetine HCl (Duloxetine HCl) 40 Mg Capsule.dr, 40 MG PO QHS, (Reported) Fluticasone Propionate (Flonase Allergy Relief) 9.9 Ml [place].susp, 2 SPRAY NARES DAILY, (Reported) Scheduled PRN Acetaminophen (Acetaminophen) 500 Mg Tablet, 1,000 MG PO Q6H PRN for PAIN, (Reported) Cyclobenzaprine HCl (Cyclobenzaprine HCl) 5 Mg Tablet, 5 MG PO TID PRN for BACK PAIN, (Reported) Oxycodone/Acetaminophen (Oxycodone-Acetaminophen 5-325) 1 Each Tablet, 1 TAB PO Q6HP PRN for MILD/MODERATE PAIN (PS 1-7) Miscellaneous Medications Cetirizine HCl/Pseudoephedrine (Zyrtec-D Tablet) 1 Each Tab.er.12h, 1 TAB PO, (Reported) Allergies Coded Allergies: Sulfa (Sulfonamide Antibiotics) (Verified Allergy, Severe, anaphylactic, 08/04/18) amoxicillin (Verified Allergy, Intermediate, rash, 08/04/18) clavulanic acid (Verified Allergy, Intermediate, rash, 08/04/18) KONSTANTIN FLORES MD Aug 05, 2018 17:57
== END 2018-08-05 15:20 | disposition home or self-care (01) | DRG 989 ==
LOC: M ED 17:34 → M SDC 19:55 → M ED INP 23:06 → M MS5PR 08-05 00:50
PROVIDERS: ADMIT Student in an Organized Health Care Education/Training Program; ATTEND Student in an Organized Health Care Education/Training Program
PROC: 0HCT0ZZ Extirpation of Matter from Right Breast, Open Approach (ICD-10-PCS; principal; 2018-08-04 19:49)
DX: M96.841 Postprocedural hematoma of a musculoskeletal structure following other procedure (principal); Z79.899 Other long term (current) drug therapy; Z88.2 Allergy status to sulfonamides; Z88.0 Allergy status to penicillin; Z88.8 Allergy status to other drugs, medicaments and biological substances